=== PATIENT | female | born 1935 | race Caucasian/White ===

== ENCOUNTER → 2018-06-03 08:47 | Outpatient (CLI) | payer SELFPAY ==
--- NOTE | 2018-06-03 08:51 | US_ITS ---
STUDY: ABDOMINAL ULTRASOUND - RIGHT UPPER QUADRANT REASON FOR VISIT: Female, 83 years old. Intermittent right upper quadrant pain TECHNIQUE: Ultrasound evaluation of the right upper quadrant was performed with real-time and static mcnamara-scale imaging. TECHNICAL QUALITY: Adequate. COMPARISON: None. FINDINGS: Liver: The liver measures 13.7 cm. There is normal echogenicity of the liver. The bile ducts are within normal limits. There is hepatic color flow. The direction of portal flow is hepatopetal. There is no demonstrated mass lesion. Gallbladder: Normal distended gallbladder. The gallbladder wall measures 2.0 mm. There is a negative sonographic Mireles's sign. There is no pericholecystic fluid. There are multiple echogenic structures within the gallbladder, consistent with multiple gallstones. Common Bile Duct (C.B.D.): The common bile duct measures 4.9 mm. Pancreas: There is normal echogenicity of the pancreas. There is no demonstrated pancreatic mass or cyst. Right Kidney: Normal size of the right kidney. The right kidney measures 9.6 cm. Normal renal cortex. The right cortex measures 1.4 cm. There is no demonstrated renal mass or cyst. There is no right hydronephrosis. US/Gallbladder IMPRESSION: Cholelithiasis without sonographic evidence of cholecystitis or biliary obstruction. Electronically Signed: Danielito Sullivan MD at 14:57 EST , Service support ,
== END ==
PROVIDERS: Family Provider Family Medicine; PCP Family Medicine; Referring Provider Surgery; Visit Provider Surgery
DX: K80.20 Calculus of gallbladder without cholecystitis without obstruction (principal)
CPT/HCPCS: 76705

== ENCOUNTER 2018-06-13 09:32 | Day surgery (SDC) | payer SELFPAY ==
--- NOTE | 2018-06-10 08:27 | EKG12_ITS ---
Test Reason : PREOP Blood Pressure : / mmHG Vent. Rate : 065 BPM Atrial Rate : 065 BPM P-R Int : 184 ms QRS Dur : 100 ms QT Int : 406 ms P-R-T Axes : 029 029 039 degrees QTc Int : 422 ms Normal sinus rhythm Incomplete right bundle branch block Borderline ECG Confirmed by JONES ROONEY, MELY ([id number]), features editor MILLIE AC ([id number]) on 06/13/2018 2:51:14 PM Referred By: Virgilio Arias Confirmed By:MELY GOLDMAN MD
[2018-06-13] VITALS (7 sets, daily range): BP systolic 142–172; BP diastolic 68–89; PULSE 48–70; RESP 14–18; TEMP 36.1–36.5; O2SAT 94–100; BMI 25.4
[2018-06-13 10:29] LABS: International Normalized Ratio 1.1; Prothrombin Time (Protime)PT. 13.6 SECONDS (11.7-14.9)
[2018-06-13 10:30] LABS: Partial Thromboplast Time 29.1 Seconds (24.1-36.2)
--- NOTE | 2018-06-13 11:05 | GALL_PTH ---
PATIENT: SHAHRIAR AC LOC: [facility] [place] U#:[id number] AGE/SX: 83/F ROOM: RE06/13/[address]: Dr. Virgilio Arias MD : [id number] BED: DIS: 06/13/2018 SPEC #: [id number] RECD: 06/13/18 15:18 STATUS: JG SAEZ #: [id number] COOPER: 06/13/18 11:[address]: Virgilio Arias DEPT: SURGICAL PATHOLOGY RECD BY: Jed Enciso ENTERED: 06/14/18 08:25 SP TYPE: AL GARCIA DR: Dr. Zain Garland MD Tissues: Gallbladder, NOS Procedures: Surgery Specimen Level III HEADER OPERATION: Laparoscopic cholecystectomy PRE-OP DIAGNOSIS: Calculus of gallbladder with chronic cholecystitis without obstruction, RUQ abdominal pain TISSUE SUBMITTED: Gallbladder MICROSCOPIC DIAGNOSIS Gallbladder, cholecystectomy: Mild chronic cholecystitis and cholelithiasis. AM:viviana 06/15/18 MICROSCOPIC DESCRIPTION Slides are reviewed. GROSS DESCRIPTION Received is one container labeled with the patient's name and designated gallbladder. The specimen consists of a gallbladder measuring 9 cm in length and up to 4 cm in diameter. The external surface is pink-thomas, smooth and glistening for the most part. Focally it is granular, hemorrhagic and contains cautery artifact. The gallbladder contains two multifaceted brown stones measuring in aggregate 2.3 x 1.5 x 1.3 cm and 1 cm in greatest dimension. The mucosa is bile-stained and without any mass lesions. The gallbladder wall measures up to 0.1 cm in thickness. Fudge Candy Maker sections from the gallbladder and the cystic duct are submitted in one cassette. / SJ:viviana 06/14/18 TC:3 CPT: 47285
--- NOTE | 2018-06-13 11:12 | PCM.DC.GB ---
Discharge Diet: Light diet - advance as tolerated Discharge Activity: May Not Drive - for 2-3 days or while taking narcotic pain medications., - - Do not drive, work heavy equipment or sign legal documents for 24 hours. May shower in (days): 1 - with the bandage in place. Additional Activity Instructions:: Pain medication may cause nausea. You should typically eat light foods as you take your pain medications. Pain medication may also cause constipation. If this is a problem for you, please discuss with your doctor. Call your doctor if your incision/area has: Continuous Slow Oozing, Sudden Increased Bleeding, Increased Pain/ Swelling, Increased Redness, Foul Smelling Discharge Call your doctor if you observe: Fever of 101 or Higher Suture Line Care: Avoid Pulling/Pushing, Avoid Pinching/Bending Additional Dressing/Incision Instructions:: Leave operative bandaids on for 2 days. When you remove dressing, leave Steri-Strips on until your follow-up appointment, or until the Steri-Strips fall off on their own. Allergies/Adverse Reactions: Allergies No Known Allergies Allergy (Verified 06/09/18 08:09) Medications to take at Discharge Cholecalciferol (VIT D3) [Vitamin D] 1,000 unit PO DAILY 06/09/18 Famotidine [Pepcid] 20 mg PO DAILY PRN 06/09/18 Vitamin E 400 unit PO DAILY 06/09/18 Oxycodone HCl/Acetaminophen [Percocet 5/325] 1 - 2 tab PO Q4H PRN PRN 6 Days #30 tab 06/13/18 The following prescriptions were given: Oxycodone HCl/Acetaminophen [Percocet 5/325] 1 - 2 tab PO Q4H PRN PRN 6 Days #30 tab PRN Reason: Pain Orders to be completed after discharge: 12 Lead EKG [CVS] Time Frame: 06/09/18, Facility: [facility], Location: Cardiovascular Services Partial Thromboplast Time Time Frame: 06/09/18, Location: Laboratory Prothrombin Time w/INR Time Frame: 06/09/18, Location: Laboratory Primary Care Physician: Zain Garland MD [Primary Care Provider] - Test Results: Test results from this visit will be discussed in further detail at your follow-up appointment, if applicable. Please Follow Up With: Virgilio Arias MD - Please call [phone] to schedule an appointment. When: 7 days after your surgery.
--- NOTE | 2018-06-13 11:14 | OP.PCM_ITS ---
Problem List (1) Calculus of gallbladder with chronic cholecystitis without obstruction Status: Chronic (2) Right upper quadrant pain Status: Acute Report of Operation Date of Procedure: 06/13/18 Pre-Operative Diagnosis: Calculus of the gallbladder with chronic cholecystitis without obstruction. Right upper quadrant abdominal pain Post-Operative Diagnosis: Same Surgery/Procedure Performed:: Laparoscopic cholecystectomy Type of Anesthesia:: General Anesthesiologist: Yonny Williamson Specimen's removed: Gallbladder Drains: None Estimated Blood Loss (mL): < 25 cc Fluids Replaced: 800 cc LR Description of Procedure: Patient was brought into the operating room. Placed in the supine position. Under excellent general endotracheal intubation the abdomen was sterilely prepped and draped in the usual fashion. Local was injected in for umbilically. Dissection was carried down to the fascia. Fascia was grasped with a [place]. Varies needle was placed inside the abdomen. The abdomen was insufflated to 15 torr. A 10/12 trocar was placed without difficulty. A subxiphoid #5 trocar was placed, inferior to this another number placed, a right upper quadrant #5 trocar was placed. All these under direct visualization without injury to underlying structures. Fundus of the gallbladder was grasped retracted in a cephalad direction. Infundibulum was grasped retracted laterally. I dissected out the cystic duct. I placed hemoclips proximally and distally and ligated the duct. Identified the cystic artery. Place hemoclips proximally distally and ligated the artery. Identified the posterior branch of the cystic artery placed hemoclips proximally distally and ligated the artery. I deliver the gallbladder from the gallbladder bed with use of electrocautery. I had excellent hemostasis. Removed the gallbladder from the M abdomen through a specimen bag through the umbilical port. Reinflated the abdomen. Inspected the gallbladder bed. I had good hemostasis. I removed the trochars under direct visualization. I had good hemostasis. Close the fascia the umbilical port with a figure stitch of 0 Vicryl. Skin incisions were closed with subcuticular stitches of 4- 0 Monocryl. Steri-Strips are applied sterile dressings were applied and the patient tolerated the procedure well. - Admit VTE Documentation VTE Present on Admission: No VTE Mechan Device Prophylaxis: SCD's VTE Pharm Prophylaxis ordered?: No Reason prophylaxis not ordered:: Treatment Not Indicated
[2018-06-13] MEDS: Cefazolin 2 GM in 0.9% Normal Saline 100 ML IV (11:15)
[2018-06-13] MEDS: Bupivacaine Mpf 0.5% 30 ML VIAL (11:37)
[2018-06-13] MEDS: oxyCODONE 5 MG Tablet PO (13:05)
[2018-06-13] MEDS: Acetaminophen 325 MG Tablet PO (13:05)
== END 2018-06-13 14:58 | disposition home or self-care (01) ==
LOC: SDC 09:35 → AC 09:35
PROVIDERS: Anesthesiology; Family Provider Family Medicine; PCP Family Medicine; Referring Provider Surgery; Visit Provider Surgery
PROC: (CPT 47562; principal; 2018-06-13 10:45)
DX: K80.10 Calculus of gallbladder with chronic cholecystitis without obstruction (principal); K21.9 Gastro-esophageal reflux disease without esophagitis
CPT/HCPCS: 47562; 36415; 85610; 85730; 88304; 93005; J7120; J2405